=== PATIENT | male | born 1985 | race Caucasian/White ===

== ENCOUNTER 2016-05-09 20:13 | Emergency (ER) | payer SELFPAY ==
[~2016-05-09 20:13] MED LIST: hydrocodone
[2016-05-09] MEDS ORDERED: ACETAMINOPHEN 500 MG TABLET PO ONE (20:45)
[2016-05-09 21:36] LABS: OBC FLU VALID
[2016-05-09] MEDS ORDERED: BENZ100C PO (22:26)
[2016-05-09] MEDS ORDERED: PROAIR HFA8.5 GM INH (22:26)
[2016-05-09 22:30] VITALS: BP 149/75
--- NOTE | 2016-05-10 02:39 | ED.ADGEN ---
Past Medical History Past Medical History: Asthma, Other Additional Past Medical Histor: EAR INFECTIONS Past Surgical History: Other Additional Past Surgical Histo: HERNIA REPAIR Alcohol Use: None Drug Use: None Adult General Chief Complaint Chief Complaint: CHEST PAIN HPI HPI Patient is a 30 year old man, history of asthma, who presents to the emergency department with 3 day history of cough, fever, generalized malaise, with development of chest pain after multiple doses of coughing, cough is nonproductive. Patient states he is positive for sick contacts, did not receive this flu vaccination this year. Denies any recent travel or surgery, any swelling extremities, any chest pain, shortness breath or wheezing. 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 No injuries. Patient noted be tachycardic, heart rate in the 1 teens upon arrival to the emergency department, by mouth temperature is 100.1. Patient does smoke cigarettes daily. No drugs or alcohol. Review of Systems Review of Systems Constitutional: Fever. Eyes: Denies change in visual acuity. [] HENT: Denies nasal congestion or sore throat. [] Respiratory: Cough, no shortness of breath. Chest pain after multiple doses of coughing. Cardiovascular: Denies chest pain or edema. [] GI: Denies abdominal pain, nausea, vomiting, bloody stools or diarrhea. [] : Denies dysuria. [] Musculoskeletal: Denies back pain or joint pain. [] Integument: Denies rash. [] Neurologic: Denies headache, focal weakness or sensory changes. [] Endocrine: Denies polyuria or polydipsia. [] Lymphatic: Denies swollen glands. [] Psychiatric: Denies depression or anxiety. [] Current Medications Current Medications Current Medications Medications (Trade) Dose Ordered Sig/Grey Start Time Stop Time Status Last Admin Dose Admin Acetaminophen (Tylenol) 1,000 mg 1X ONCE 05/09/16 20:45 05/09/16 20:46 DC 05/09/16 20:45 1,000 MG Allergies Allergies Allergies Coded Allergies Type Severity Reaction Last Updated Verified No Known Drug Allergies 06/10/13 No Physical Exam Physical Exam Constitutional: Well developed, well nourished, no acute distress, non-toxic appearance. [] HENT: Normocephalic, atraumatic, bilateral external ears normal, oropharynx moist, no oral exudates, mildly injected oropharynx, no exudate identified. Is not rates her moist. [] Eyes: PERRLA, EOMI, conjunctiva normal, no discharge. [] Neck: Normal range of motion, no tenderness, supple, no stridor. [] Cardiovascular:Heart rate regular rhythm, no murmur, S1, S2, rubs or gallops. [] Lungs & Thorax: Bilateral breath sounds clear to auscultation, no wheezing, rhonchi, rales. No chest wall crepitus, patient with mild tenderness in the lateral ribs bilaterally. Reproduce his chest pain. Abdomen: Bowel sounds normal, soft, no tenderness, no masses, no pulsatile masses. [] Skin: Warm, dry, no erythema, no rash. [] Back: No tenderness, no CVA tenderness. [] Extremities: No tenderness, no cyanosis, no clubbing, ROM intact, no edema. [] Neurologic: Alert and oriented X 3, normal motor function, normal sensory function, no focal deficits noted. [] Psychologic: Affect normal, judgement normal, mood normal. [] Current Patient Data Vital Signs Vital Signs Date Time Temp Pulse Resp B/P Pulse Ox O2 Delivery O2 Flow Rate FiO2 05/09/16 20:20 99.4 110 18 145/72 95 Room Air 99.4 Lab Values Laboratory Tests Test 05/09/16 20:35 Influenza Type A Antigen Negative (NEGATIVE) Influenza Type B Antigen Positive (NEGATIVE) EKG EKG EC: Sinus tachycardia, heart rate 102 beats minute, upright axis, QTC of 395, IA of 590, QRS of 92, no ST elevations or depressions, aside from tachycardia, no other abnormalities identified. As interpreted by me. [] Radiology/Procedures Radiology/Procedures Chest x-ray: PA and lateral: Patient with normal cardiopulmonary silhouette, no discrete infiltrates, effusions, pneumothorax, bony or soft tissue abnormalities identified. Course & Med Decision Making Course & Med Decision Making Pertinent Labs and Imaging studies reviewed. (See chart for details) Patient's examination and history is consistent with a likely viral infection. Patient received a flu swab in the ED, which is positive for influenza type B. Chest x-ray remarkable, no evidence of lower airspace disease. 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 Heart rate is improved as well, 80s to the low 100s with activity, denies any orthostatic symptoms. Discussed with patient the importance of remaining well-hydrated, use of antipyretic medications, and prescription for Tessalon Perle and albuterol inhaler as he has run out of his medication, although there is no evidence of lower extremity disease at this time, patient instructed to stay home from work until he is fever free for 24 hours without antipyretic medications. No indication for Tamiflu as discussed with patient. Patient voiced understanding and agreement, tolerating by mouth in the ED without issue. Discharged home in stable condition with plan as above. Dragon Disclaimer Eliel Disclaimer This electronic medical record was generated, in whole or in part, using a voice recognition dictation system. Departure Impression: Primary Impression: Influenza B Disposition: 01 HOME, SELF-CARE Condition: IMPROVED Scripts Benzonatate (Tessalon Perle)100 Mg [id number] Mg PO TID PRN COUGH #20 CAP Prov:JAGJIT GU DO 05/09/16 Albuterol Sulfate (Proair Hfa Inhaler)8.5 Gm [email or web address] Puff INH PRN Q6HRS PRN SHORTNESS OF BREATH #1 INHALER Ref 0 Prov:JAGJIT GU DO 05/09/16 JAGJIT GU DO May 10, 2016 02:39
--- NOTE | 2016-05-10 06:30 | EKG ---
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
--- NOTE | 2016-05-10 07:40 | RAD ---
2 view CXR: Clinical indications: Chest pain with productive cough for 2 days. Comparison: September 21, 2014. Findings: No acute lung infiltrate or pleural effusion or pulmonary edema or lung mass or pneumothorax is seen. The heart size, pulmonary vasculature, mediastinum and both azeb are unremarkable. The osseous structures appear intact. Impression: No acute radiographic abnormality is seen.
== END 2016-05-09 22:50 | disposition home or self-care (01) ==
LOC: ER 20:13
DX: J10.1 Influenza due to other identified influenza virus with other respiratory manifestations (principal); J45.909 Unspecified asthma, uncomplicated
CPT/HCPCS: 71020; 87804; 93005; 99285-25